=== PATIENT | female | born 1975 | race American Indian/Alaskan Native ===

== ENCOUNTER 2017-03-01 08:16 | Emergency (ER) | payer OTHER ==
[2017-03-01 08:39] VITALS: RESP 18; TEMP 98.4
[2017-03-01] MEDS ORDERED: Oxycodone/Acetaminophen 5/325 mg Tab PO STA (09:30)
[2017-03-01] MEDS ORDERED: Oxycodone/Acetaminophen 5/325 mg Tab ONE (09:35)
--- NOTE | 2017-03-01 10:26 | C.PDOC ---
History Of Present Illness 41 y/o female presents to ED s/p fall. Pt is an employee here at [employer], states she was walking in when she slipped and fell onto her hands and knees. She now complains of left knee pain, left wrist pain and lower back pain. She denies head injury, LOC, weakness or numbness, dizziness or any other complaints. - HPI Time Seen by Provider: 03/01/17 08:41 Chief Complaint (Nursing): Trauma History Per: Patient History/Exam Limitations: no limitations Onset/Duration Of Symptoms: Mins Location Of Injury: Left: Back, Hand (wrist), Knee Severity: Mild Recent travel outside of the [place]: No - Fall Fall:Prior To Injury: Slipped Past Medical History Reviewed: Historical Data, Nursing Documentation, Vital Signs Vital Signs: Last Vital Signs Temp 98.4 F 03/01/17 08:24 Pulse 70 03/01/17 17:00 Resp 18 03/01/17 17:00 BP 136/73 03/01/17 17:00 Pulse Ox 100 03/01/17 17:00 - Medical History PMH: Asthma, HTN Family History: States: Unknown Family Hx - Social History Hx Alcohol Use: Yes Hx Substance Use: No Review Of Systems Musculoskeletal: Positive for: Back Pain, Other (left wrist and knee pain) Neurological: Negative for: Weakness, Numbness, Dizziness Physical Exam - Physical Exam Appears: Non-toxic, No Acute Distress Skin: Warm, Dry, No Rash Head: Atraumatic, Normacephalic Cardiovascular: Rhythm Regular, No Murmur Respiratory: Normal Breath Sounds, No Rales, No Rhonchi, No Wheezing Back: No Vertebral Tenderness, Paraspinal Tenderness (left lumbar) Extremity: Normal ROM, Capillary Refill (<2 seconds), No Deformity, No Swelling , Other (diffuse left wrist and left knee tenderness) Pulses: Left Radial: Normal, Left Dorsalis Pedis: Normal Neurological/Psych: Oriented x3, Normal Speech, Normal Motor, Normal Sensation ED Course And Treatment O2 Sat by Pulse Oximetry: 100 (room air) Pulse Ox Interpretation: Normal - Other Rad XR left knee X-Ray: Viewed By Me, Read By Radiologist Interpretation: Accession No. : [id number]. Patient Name / ID : SOFIA MEYERS / [id number]. Exam Date : 03/01/2017 09:38:46 ( Approved ). Study Comment : Sex / Age : F / 41Y. Creator : Cass Damon MD. Dictator : Cass Damon MD. Interlocking Machine Operator : Director Of Food And Beverage Services : Cass Damon MD. Approver2 : Report Date : 03/01/2017 11:00:52. My Comment : . PROCEDURE: Left Knee Radiographs. HISTORY: COMPARISON: None available. FINDINGS: BONES: No acute displaced fracture. Degenerative changes including tenting of the intercondylar notch. JOINTS: No dislocation. Medial joint space narrowing. JOINT EFFUSION: No significant joint effusion. OTHER FINDINGS: None. IMPRESSION: Degenerative changes. No acute displaced fracture, dislocation, or significant joint effusion identified. If symptoms persist, or if there is continued clinical concern, x-ray follow-up in 7-10 days should be considered. XR left wrist X-Ray: Viewed By Me, Read By Radiologist Interpretation: Accession No. : [id number]. Patient Name / ID : SOFIA MEYERS / [id number]. Exam Date : 03/01/2017 09:43:23 ( Approved ). Study Comment : Sex / Age : F / 41Y. Creator : Cass Damon MD. Dictator : Cass Damon MD. Interlocking Machine Operator : Director Of Food And Beverage Services : Cass Damon MD. Approver2 : Report Date : 03/01/2017 11:02:06. My Comment : . PROCEDURE: Left Wrist Radiographs. HISTORY: fall. COMPARISON: None available. FINDINGS: BONES: No acute displaced fracture. JOINTS: No dislocation. SOFT TISSUES: Unremarkable. No evidence of radiopaque foreign body. OTHER FINDINGS: None. IMPRESSION: No acute displaced fracture, dislocation, or significant joint effusion identified. If symptoms persist, or if there is continued clinical concern, x-ray follow-up in 7-10 days should be considered. XR lumbar spine X-Ray: Viewed By Me, Read By Radiologist Interpretation: Accession No. : [id number]. Patient Name / ID : SOFIA MEYERS / [id number]. Exam Date : 03/01/2017 09:35:21 ( Approved ). Study Comment : Sex / Age : F / 41Y. Creator : Cass Damon MD. Dictator : Cass Damon MD. Interlocking Machine Operator : Director Of Food And Beverage Services : Cass Damon MD. Approver2 : Report Date : 03/01/2017 11:24:13. My Comment : . PROCEDURE: Radiographs of the Lumbar Spine. HISTORY: fall. COMPARISON : None available. FINDINGS: BONES: Alignment appears satisfactory. No listhesis. No acute displaced fracture identified. Small age indeterminate cortical discontinuity along the crest of the ileum (medial superiorly) ; possibly related to remote trauma/avulsion fracture. Correlate clinically. DISC SPACES: Unremarkable. OTHER FINDINGS: None. IMPRESSION: Small age indeterminate cortical discontinuity along the crest of the ileum (medial superiorly) ; possibly related to remote trauma/avulsion fracture. Correlate clinically. Case discussed with Odessa VILLA on 03/01/17 at 10:58 a.m.. - CT Scan/US LS spine CT Other Rad Studies (CT/US): Read By Radiologist, Radiology Report Reviewed CT/US Interpretation: Accession No. : [id number]. Patient Name / ID : SOFIA MEYERS / [id number]. Exam Date : 03/01/2017 15:16:00 ( Approved ). Study Comment : Sex / Age : F / 41Y. Creator : Camryn Solomon MD. Dictator : Camryn Solomon MD. Interlocking Machine Operator : Director Of Food And Beverage Services : Camryn Solomon MD. Approver2 : Report Date : 03/01/2017 16:25:50. My Comment : . PROCEDURE: CT Lumbar Spine without contrast. HISTORY: Fall. COMPARISON: None. TECHNIQUE: Axial computed tomography images were obtained of the lumbar spine without the use of intravenous contrast. Coronal and sagittal reformatted images were created and reviewed. Radiation dose: Total exam DLP = 1391.54 mGy-cm. This CT exam was performed using one or more of the following dose reduction techniques: Automated exposure control, adjustment of the mA and/or kV according to patient size, and/or use of iterative reconstruction technique. FINDINGS: VERTEBRAE: There is normal alignment of the lumbar vertebral bodies. Lumbar lordosis is maintained. Vertebral bodies are normal in height. There is no acute fracture , spondylolysis or spondylolisthesis. Bone mineralization is normal. DISCS/ SPINAL CANAL/NEURAL FORAMINA: L1-2: No large disc herniation, neural foraminal or spinal canal stenosis. L2-3: No large disc herniation, neural foraminal or spinal canal stenosis. L3-4: Mild posterior disc bulge. No neural foraminal or spinal canal stenosis. L4-5: Posterior disc bulge without central spinal canal stenosis. Mild bilateral facet arthropathy contributes to mild neural foraminal stenosis. L5-S1: Bulge and mild bilateral facet arthropathy with resultant mild neural foraminal stenosis. No spinal canal stenosis. PARASPINAL SOFT TISSUES: The paraspinous soft tissues are normal. Imaged portion of the retroperitoneum is within normal limits. OTHER FINDINGS: The uterus is somewhat lobular. There is a 3.3 cm simple cyst in the right ovary. IMPRESSION: 1. No acute fracture, spondylolysis or spondylolisthesis. 2. Mild multilevel degenerative disc disease without spinal canal stenosis. Pelvis CT Other Rad Studies (CT/US): Read By Radiologist CT/US Interpretation: Accession No. : [id number]. Patient Name / ID : SOFIA MEYERS / [id number]. Exam Date : 03/01/2017 15:20:12 ( Approved ). Study Comment : Sex / Age : F / 41Y. Creator : Tulio Wu MD. Dictator : Tulio Wu MD. Interlocking Machine Operator : Director Of Food And Beverage Services : Tulio Wu MD. Approver2 : Report Date : 03/01/2017 16:41:07. My Comment : . CT pelvis. History: Fall. Injury. Comparison: None available. Technique: Multiple contiguous axial images were performed through the pelvis without the use of intravenous contrast. Subsequently, sagittal coronal reformatted images were obtained. This CT exam was performed using one or more of the following dose reduction techniques: Automated exposure control, adjustment of the mA and/or kV according to patient size, and/or use of iterative reconstruction technique. Findings: No evidence of acute displaced fracture or dislocation. Urinary bladder is preserved. Heterogeneous uterus and right adnexum. Suggestion of a small right adnexal cyst. Punctate 1-2 millimeter calcifications at the level of the right adnexa. Fecal retention in the colon. Few scattered diverticuli. Appendix preserved. Few shotty para-aortic and inguinal lymph nodes. Impression: Negative acute. If pain persists, consider MRI. Additional findings as above Progress Note: Plan: XR left wrist, left knee and lumbar spine, pain meds. XR left knee shows degenerative changes, no fracture or dislocation. XR left wrist negative for fracture or dislocation. patient's pain was treated with Percocet with partial releave of pain. Toradol IM was ordered. Knee brace applied, DEYSI wrap applied to wrist. Physical therapist provided her with crutch walking instructions. Pt ambulating well, in no acute distress. Discharge papers were given to her and upon reading XR lumbar spine report pt then became upset and complained of worsening pain. Morphine IM was ordered, but patient refused stating she is allergic to it and requested Dilaudid. Patient is very concerned about ? abnormal xray finding. CT of LS spine and Pelvis were ordered and w/o acute changes. Patient was d/c home with [facility] up. Disposition - Disposition Disposition: HOME/ ROUTINE Disposition Time: 16:55 Condition: STABLE Additional Instructions: Follow up in [facility] within 1-2 days. Return to ED if feel worse. Prescriptions: Ibuprofen [Motrin Tab] 600 mg PO Q8 #30 tab oxyCODONE/Acetaminophen [Percocet 5/325 mg Tab] 1 tab PO QID PRN #20 tab PRN Reason: Pain diaZEpam [Valium] 2 mg PO TID #15 tab Instructions: Knee Pain (ED), Back Pain (ED), Wrist Sprain (ED) Forms: Work Excuse - Clinical Impression Clinical Impression: Fall, Knee contusion, Wrist sprain, Lumbar strain - PA / SHOWROOM CONSULTANT / Resident Statement MD/DO has reviewed & agrees with the documentation as recorded. - Scribe Statement The provider has reviewed the documentation as recorded by the Yair Hart All medical record entries made by the Yair were at my direction and personally dictated by me. I have reviewed the chart and agree that the record accurately reflects my personal performance of the history, physical exam, medical decision making, and the department course for this patient. I have also personally directed, reviewed, and agree with the discharge instructions and disposition.
--- NOTE | 2017-03-01 11:02 | RAD ---
PROCEDURE: Left Knee Radiographs. HISTORY: COMPARISON: None available. FINDINGS: BONES: No acute displaced fracture. Degenerative changes including tenting of the intercondylar notch. JOINTS: No dislocation. Medial joint space narrowing. JOINT EFFUSION: No significant joint effusion. OTHER FINDINGS: None. IMPRESSION: Degenerative changes. No acute displaced fracture, dislocation, or significant joint effusion identified. If symptoms persist, or if there is continued clinical concern, x-ray follow-up in 7-10 days should be considered.
--- NOTE | 2017-03-01 11:03 | RAD ---
PROCEDURE: Left Wrist Radiographs. HISTORY: fall COMPARISON: None available. FINDINGS: BONES: No acute displaced fracture. JOINTS: No dislocation. SOFT TISSUES: Unremarkable. No evidence of radiopaque foreign body OTHER FINDINGS: None. IMPRESSION: No acute displaced fracture, dislocation, or significant joint effusion identified. If symptoms persist, or if there is continued clinical concern, x-ray follow-up in 7-10 days should be considered.
--- NOTE | 2017-03-01 11:25 | RAD ---
PROCEDURE: Radiographs of the Lumbar Spine. HISTORY: fall COMPARISON: None available FINDINGS: BONES: Alignment appears satisfactory. No listhesis. No acute displaced fracture identified. Small age indeterminate cortical discontinuity along the crest of the ileum (medial superiorly) ; possibly related to remote trauma/avulsion fracture. Correlate clinically. DISC SPACES: Unremarkable. OTHER FINDINGS: None. IMPRESSION: Small age indeterminate cortical discontinuity along the crest of the ileum (medial superiorly) ; possibly related to remote trauma/avulsion fracture. Correlate clinically. Case discussed with Od[place] VILLA on 03/01/17 at 10:58 a.m..
[2017-03-01 12:29] VITALS: O2SAT 100
[2017-03-01] MEDS ORDERED: Morphine 4 MG/ML VIAL ONE (14:07)
[2017-03-01] MEDS ORDERED: HYDROmorphone 1 mg/ml ISec IM STA (14:26)
[2017-03-01] MEDS ORDERED: HYDROmorphone 1 mg/ml ISec ONE (14:36)
--- NOTE | 2017-03-01 16:27 | CT ---
PROCEDURE: CT Lumbar Spine without contrast HISTORY: Fall COMPARISON: None. TECHNIQUE: Axial computed tomography images were obtained of the lumbar spine without the use of intravenous contrast. Coronal and sagittal reformatted images were created and reviewed. Radiation dose: Total exam DLP = 1391.54 mGy-cm. This CT exam was performed using one or more of the following dose reduction techniques: Automated exposure control, adjustment of the mA and/or kV according to patient size, and/or use of iterative reconstruction technique. FINDINGS: VERTEBRAE: There is normal alignment of the lumbar vertebral bodies. Lumbar lordosis is maintained. Vertebral bodies are normal in height. There is no acute fracture, spondylolysis or spondylolisthesis. Bone mineralization is normal. DISCS/SPINAL CANAL/NEURAL FORAMINA: L1-2: No large disc herniation, neural foraminal or spinal canal stenosis. L2-3: No large disc herniation, neural foraminal or spinal canal stenosis. L3-4: Mild posterior disc bulge. No neural foraminal or spinal canal stenosis. L4-5: Posterior disc bulge without central spinal canal stenosis. Mild bilateral facet arthropathy contributes to mild neural foraminal stenosis. L5-S1: Bulge and mild bilateral facet arthropathy with resultant mild neural foraminal stenosis. No spinal canal stenosis. PARASPINAL SOFT TISSUES: The paraspinous soft tissues are normal. Imaged portion of the retroperitoneum is within normal limits. OTHER FINDINGS: The uterus is somewhat lobular. There is a 3.3 cm simple cyst in the right ovary. IMPRESSION: 1. No acute fracture, spondylolysis or spondylolisthesis. 2. Mild multilevel degenerative disc disease without spinal canal stenosis.
--- NOTE | 2017-03-01 16:42 | CT ---
CT pelvis History: Fall. Injury. Comparison: None available. Technique: Multiple contiguous axial images were performed through the pelvis without the use of intravenous contrast. Subsequently, sagittal coronal reformatted images were obtained. This CT exam was performed using one or more of the following dose reduction techniques: Automated exposure control, adjustment of the mA and/or kV according to patient size, and/or use of iterative reconstruction technique. Findings: No evidence of acute displaced fracture or dislocation. Urinary bladder is preserved. Heterogeneous uterus and right adnexum. Suggestion of a small right adnexal cyst. Punctate 1-2 millimeter calcifications at the level of the right adnexa. Fecal retention in the colon. Few scattered diverticuli. Appendix preserved. Few shotty para-aortic and inguinal lymph nodes. Impression: Negative acute. If pain persists, consider MRI. Additional findings as above.
[2017-03-01 17:34] VITALS: BP 136/73; PULSE 70
== END 2017-03-01 17:36 | disposition home or self-care (01) ==
LOC: C.ER 08:16
DX: S80.02XA Contusion of left knee, initial encounter (principal); S63.502A Unspecified sprain of left wrist, initial encounter; S39.012A Strain of muscle, fascia and tendon of lower back, initial encounter; W01.0XXA Fall on same level from slipping, tripping and stumbling without subsequent striking against object, initial encounter; Y93.01 Activity, walking, marching and hiking; Y92.238 Other place in hospital as the place of occurrence of the external cause; Y99.0 Civilian activity done for income or pay
CPT/HCPCS: 72100; 72131; 72192; 73110; 73562; 96372; 97116; 97161; 99285; G8978; G8979; G8980; J1170; J1885